=== PATIENT | male | born 1955 | race Two or more races ===

== ENCOUNTER 2018-07-23 14:37 | Inpatient (IN) | payer OTHER, MEDICAID ==
[~2018-07-23] VITALS: Ht 165.1 cm; Wt 55.8 kg
--- NOTE | 2018-07-23 14:37 | NUR ---
PT BIBSELF FROM HOME FOR RECTAL PAIN AND DIARRGEA FOR 1MO; PT AAOX4, PT ON MONITOR, VSS, PENDING ER PROV EVAL
[2018-07-23 15:21] LABS: BASOPHILS % (AUTO) 0.4 % (0.0-2.0); HEMATOCRIT 41 % (39-51); HEMOGLOBIN 14.1 g/dL (13.5-17.5); LYMPHOCYTES # (AUTO) 2.2 /CMM (0.8-4.8); LYMPHOCYTES % (AUTO) 34.1 % (20.0-44.0); MEAN CORPUSCULAR HGB CONC 34 g/dl (31.0-36.0); MEAN CORPUSCULAR VOLUME 87 fL (80-96); MONOCYTES # (AUTO) 0.5 /CMM (0.1-1.30); NEUTROPHILS # (AUTO) 3.5 /CMM (1.8-8.9); NEUTROPHILS % (AUTO) 54.5 % (43.0-81.0); PLATELET COUNT (AUTO) 234 /CMM (150-450); RED BLOOD CELL COUNT(AUTO) 4.75 MIL/uL (4.5-6.0); WHITE BLOOD COUNT (AUTO) 6.5 K/uL (4.3-11.0)
[2018-07-23 15:33] LABS: CREATININE 1.3 mg/dL (0.6-1.3); POTASSIUM 3.8 mmol/L (3.5-5.1)
[2018-07-23 15:40] LABS: ALBUMIN 3.6 g/dL (3.4-5.0); BILIRUBIN,DIRECT 0.1 mg/dL (0.0-0.2); BILIRUBIN,TOTAL 0.3 mg/dL (0.2-1.0); TOTAL PROTEIN, SERUM 8.1 g/dL (6.4-8.2)
[2018-07-23] MEDS ORDERED: IV NS 0.9% 250 ML IV ONE (15:47)
[2018-07-23] MEDS ORDERED: IOHEXOL-300 100 ML VIAL IV ONE (15:47)
[2018-07-23] MEDS ORDERED: CT SWABBABLE VALVE TRANS SET 1 EA INFUS.SET MC ONE (15:47)
--- NOTE | 2018-07-23 16:42 | NUR ---
CALLED DR PRADO FOR GEN SURGERY CONSULT PER LIZET REYES; LIZET REYES SPOKE WITH DR PRADO.
--- NOTE | 2018-07-23 16:49 | NUR ---
CALLED NURSING DIRECTOR MARKETING COMMUNICATIONS FOR BED.
--- NOTE | 2018-07-23 16:55 | NUR ---
324-2 [facility]
--- NOTE | 2018-07-23 18:30 | NUR ---
MS WOOD SHOP TEACHER NOTE PT ARRIVED TO MEDSURG UNIT IN STABLE CONDITION. PT IS A/O X4, AFEBRILE. RESPIRATIONS ARE EVEN AND UNLABORED, NOT IN ANY ACUTE DISTRESS NOTED. PT C/O DISCOMFORT TO BUTTOCKS AREA, HOWEVER DENIES ANY CHEST PAIN, N/V, SOB. PUPILS ARE REACTIVE TO LIGHT, BILATERAL HAND RESTAURANT ASSISTANT MANAGER ARE STRONG AND EQUAL. IV SITE TO RAC G18 INTACT, NO INFILTRATION NOTED. DRESSING KEPT CLEAN AND DRY. PT REFUSES SKIN ASSESSMENT AT THIS TIME, DENIES ANY DISCOLORATIONS, REDNESS, OPEN AREAS. SAFETY MEASURES ARE IN PLACE. INSTRUCTED PT TO USE CALL LIGHT WHEN ASSISTANCE IS NEEDED, CALL LIGHT IS LEFT WITHIN REACH. ENDORSED TO NEXT SHIFT FOR CONTINUITY OF CARE.
--- NOTE | 2018-07-23 19:27 | NUR ---
PT TRANSPORTED FOR [facility] VIA GURNEY; PT IS MS; REPORT GIVEN TO NURSE.
[2018-07-23 19:30] VITALS: BP 143/84
--- NOTE | 2018-07-23 19:30 | NUR ---
MS RN OPENING NOTES: RECEIVED PT ON ROOM AIR AND IS TOLERATING WELL. NO SOB NOTED. NO S/S OF DISTRESS. PT HAS IV ON R AC #18G AND IS PATENT AND INTACT. CURRENTLY H/L AT THIS TIME. INFORMED PT THAT SHE WILL BE NPO FOR NOW THERE ARE NO ADMITTING ORDERS YET. BED KEPT IN LOW, LOCKED POSITION, AND SIDE RAILS X 2UP. WILL CONTINUE TO MONITOR PT.
[2018-07-23] MEDS ORDERED: OMEG1CAP PO (19:36)
[2018-07-23] MEDS ORDERED: CHOL100045 PO (19:39)
[2018-07-23] MEDS ORDERED: MULT-1094 PO (19:40)
[2018-07-23] MEDS ORDERED: ABAC1TAB15 PO (19:40)
[2018-07-23] MEDS ORDERED: SPIR100T5 PO (19:41)
[2018-07-23 20:00] VITALS: BP 143/84
[2018-07-23] MEDS ORDERED: Z GUARD REMEDY 2 OZ OINT TP PRN (20:30)
[2018-07-23] MEDS ORDERED: MAGNESIUM HYDROXIDE 30 ML UDC PO PRN (20:30)
[2018-07-23] MEDS ORDERED: ONDANSETRON HCL/PF 4 MG/2 ML VIAL IVP PRN (20:30)
[2018-07-23] MEDS ORDERED: ACETAMINOPHEN 325 MG TABLET PO PRN (20:30)
[2018-07-23] MEDS ORDERED: ZOLPIDEM TARTRATE 5 MG TABLET PO PRN (20:30)
[2018-07-23] MEDS ORDERED: MAG HYDROX/AL HYDROX/SIMETH 30 ML UDC PO PRN (20:30)
--- NOTE | 2018-07-23 21:25 | NUR ---
MS RN NOTES: TERRITORY ACCOUNT MANAGER ADALGISA AT BEDSIDE.
--- NOTE | 2018-07-23 21:38 | NUR ---
MS ALMANZA NOTES: PER MARA ROMERO TO TAKE HIV MED TONIGHT WE DO NOT PROVIDE IT AND COLLECT IT AND SEND TO PHARMACY FOR TOMORROW. Addendum: 07/23/18 at 2155 by CLARITZA HUERTA RN MED: [id number] [phone]
[2018-07-23] MEDS: IV NS 0.9% 1,000 ML IV PRN (21:49)
--- NOTE | 2018-07-23 21:55 | NUR ---
MS RN NOTES: MEDS COLLECTED AND PLACED IN BAG. WILL TAKE TO PHARMACY IN AM.
[2018-07-23] MEDS ORDERED: CALC-1237 PO (21:58)
[2018-07-23] MEDS: HYDROCODONE/APAP 5/325MG 1 EACH TABLET PO PRN (22:05)
--- NOTE | 2018-07-23 22:07 | NUR ---
MS RN NOTES: PT VERBALIZING THAT HE IS STARTING TO HAVE PAIN IN HIS RECTUM 12/01. PT WAS ADMINISTERED NORCO 5 PO. WILL CONTINUE TO MONITOR.
[2018-07-23] MEDS ORDERED: HYDROMORPHONE INJ 0.5 MG/0.5 ML SYRINGE IV PRN (22:30)
[2018-07-24 06:42] LABS: APPEARANCE,URINE CLEAR (CLEAR); BILIRUBIN,URINE NEGATIVE (NEGATIVE); BLOOD, URINE NEGATIVE Ery/uL (NEGATIVE); COLOR,URINE YELLOW (YELLOW); KETONES,URINE NEGATIVE (NEGATIVE); LEUKOCYTE ESTERASE ,URINE NEGATIVE (NEGATIVE); NITRITE, URINE NEGATIVE (NEGATIVE); PH,URINE 5.5 (5.0-8.0); PROTEIN,URINE NEGATIVE (NEGATIVE); UGLUCOSE NEGATIVE (NEGATIVE); UROBILINOGEN,URINE 0.2 EU/dL (0.2)
[2018-07-24 06:54] LABS: BASOPHILS % (AUTO) 0.6 % (0.0-2.0); EOSINOPHILS % (AUTO) 4.1 % (0.0-6.0); HEMATOCRIT 37 % (39-51); HEMOGLOBIN 12.6 g/dL (13.5-17.5); LYMPHOCYTES # (AUTO) 2.7 /CMM (0.8-4.8); LYMPHOCYTES % (AUTO) 42.2 % (20.0-44.0); MEAN CORPUSCULAR HGB CONC 34 g/dl (31.0-36.0); MEAN CORPUSCULAR VOLUME 86 fL (80-96); MONOCYTES # (AUTO) 0.5 /CMM (0.1-1.30); MONOCYTES % (AUTO) 8.3 % (2.0-12.0); NEUTROPHILS # (AUTO) 2.8 /CMM (1.8-8.9); NEUTROPHILS % (AUTO) 44.8 % (43.0-81.0); PLATELET COUNT (AUTO) 202 /CMM (150-450); RED BLOOD CELL COUNT(AUTO) 4.29 MIL/uL (4.5-6.0); WHITE BLOOD COUNT (AUTO) 6.3 K/uL (4.3-11.0)
--- NOTE | 2018-07-24 06:57 | NUR ---
MS ALMANZA CLOSING NOTES: ALL NEEDS WERE ATTENDED AND ANTICIPATED FOR. PT KEPT CLEAN, DRY, AND COMFORTABLE. PT ON ROOM AIR AND TOLERATING WELL. PT HAS BEEN NPO SINCE MIDNIGHT. PT HAS IV AND IS BEING INFUSED WITH IV NS AT 75ML/HR. BED KEPT IN LOW, LOCKED POSITION, AND SIDE RAILS X 2UP. NO SOB NOTED. NO S/S OF DISTRESS. WILL ENDORSE TO AM NURSE FOR DEJON. Addendum: 07/24/18 at 0735 by CLARITZA HUERTA RN WILL BRING MEDS TO PHARMACY.
--- NOTE | 2018-07-24 07:12 | NUR ---
MS RN NOTES PATIENT IN BED ALERT ORIENTED X 3. NO ACUTE DISTRESS NOTED. BREATHING UNLABORED. NO SOB NOTED. DENIED ANY PAIN. IV ACCESS PATENT AND INTACT, NO REDNESS OR SWELLING NOTED. SAFETY MEASURES IN PLACE. CALL LIGHT WITHIN REACH. WILL CONTINUE TO MONITOR ACCORDINGLY.
[2018-07-24 07:21] LABS: ALBUMIN 3.1 g/dL (3.4-5.0); BILIRUBIN,TOTAL 0.4 mg/dL (0.2-1.0); CALCIUM, SERUM 8.5 mg/dL (8.5-10.1); CREATININE 1.3 mg/dL (0.6-1.3); MAGNESIUM 1.7 mg/dL (1.8-2.4); PHOSPHORUS 3.4 mg/dL (2.5-4.9); POTASSIUM 3.4 mmol/L (3.5-5.1)
[2018-07-24 07:27] LABS: THYROID STIMULATING HORMONE 2.635 uIU/mL (0.358-3.74)
[2018-07-24 08:00] VITALS: BP 121/73
[2018-07-24] MEDS: PANTOPRAZOLE 40 MG VIAL IV SCH (09:10)
--- NOTE | 2018-07-24 09:58 | NUR ---
MS RN NOTES SEEN AND EVALUATED BY HARINI BLACK WITH NEW ORDERS MADE, NOTED AND CARRIED OUT.
[2018-07-24] MEDS: Magnesium 1GM/D5W 100ML PREMIX 100 ML IV SCH ×2 (10:47→15:06)
[2018-07-24] MEDS: SPIRONOLACTONE 25 MG TABLET PO SCH (10:53)
--- NOTE | 2018-07-24 10:53 | NUR ---
MS RN NOTES PATIENT WAS NPO EARLIER, ADMINISTERED ALDACTONE, HUMAN RESOURCE OFFICER HARINI DIANA AWARE.
[2018-07-24] MEDS: POTASSIUM CL. PREMIX PERIPHER. 50 ML IV SCH ×2 (12:19→13:44)
[2018-07-24] MEDS: IV NS 0.9% 1,000 ML IV PRN (12:20)
[2018-07-24] MEDS ORDERED: NA PHOS,M-B/NA PHOS,DI-BA 1 EA ENEMA RC PRN (14:00)
--- NOTE | 2018-07-24 15:42 | NUR ---
MS RN NOTES PATIENT REFUSED ENEMA GIVEN DESPITE OF EXPLANATION OR RISK AND BENEFITS, LIZET RICK MADE AWARE. LIZET ELIZABETH MADE NEW ORDERS TO DISCONTINUE ORDERS FOR MAGNESIUM CITRATE AND GOLYTELY DUE TO CANCEL EGD/COLONSCOPY ORDER, NOTED AND CARRIED OUT.
[2018-07-24 16:00] VITALS: BP 129/82
[2018-07-24] MEDS: DOLUTEGRAVIR PO SCH (16:58)
[2018-07-24] MEDS: ABACAVIR PO SCH (16:58)
[2018-07-24] MEDS: LAMIVUDI PO SCH (16:58)
--- NOTE | 2018-07-24 19:00 | NUR ---
MS RN NOTES PATIENT IN BED ALERT ORIENTED X 3. NO ACUTE DISTRESS NOTED. BREATHING UNLABORED. NO SOB NOTED. DENIED ANY PAIN. IV ACCESS PATENT AND INTACT, NO REDNESS OR SWELLING NOTED. DUE MEDICATIONS GIVEN, NO ASE NOTED. NEEDS ATTENDED AND ANTICIPATED.SAFETY MEASURES IN PLACE. CALL LIGHT WITHIN REACH. ENDORSED TO NIGHT NURSE FOR CONTINUITY OF CARE.
--- NOTE | 2018-07-24 19:10 | NUR ---
MS RN NOTES RECEIVED PT IN BED ALERT ORIENTED X 3 AND ABLE TO MAKE NEEDS KNOWN. NO S/S OF ACUTE DISTRESS OR SOB NOTED. BREATHING EVEN AND UNLABORED. PT DENIES ANY PAIN AT THIS TIME. IV ACCESS LAC #20G IS PATENT AND INTACT WITH NO REDNESS OR SWELLING NOTED. SAFETY MEASURES IN PLACE. CALL LIGHT WITHIN REACH. WILL CONTINUE TO MONITOR.
[2018-07-24 20:00] VITALS: BP 124/71
[2018-07-24] MEDS: HYDROCODONE/APAP 5/325MG 1 EACH TABLET PO PRN (21:19)
--- NOTE | 2018-07-25 07:10 | NUR ---
MS RN NOTES PATIENT IN BED ALERT ORIENTED X 3. NO ACUTE DISTRESS NOTED. BREATHING UNLABORED. NO SOB NOTED. IV ACCESS PATENT AND INTACT, NO REDNESS OR SWELLING NOTED. SAFETY MEASURES IN PLACE. CALL LIGHT WITHIN REACH. WILL CONTINUE TO MONITOR ACCORDINGLY.
--- NOTE | 2018-07-25 07:14 | NUR ---
MS RN NOTES PT IN BED ALERT ORIENTED X 3 AND ABLE TO MAKE NEEDS KNOWN. NO S/S OF ACUTE DISTRESS OR SOB NOTED. BREATHING EVEN AND UNLABORED. PT DENIES ANY PAIN AT THIS TIME. IV ACCESS LAC #20G IS PATENT AND INTACT WITH NO REDNESS OR SWELLING NOTED WITH NS @75ML/HR. CALL LIGHT WITHIN REACH. WILL ENDORSE TO ONCOMING NURSE FOR CONTINUATION OF CARE.
[2018-07-25 07:19] LABS: BASOPHILS % (AUTO) 0.3 % (0.0-2.0); EOSINOPHILS % (AUTO) 3.3 % (0.0-6.0); HEMATOCRIT 37 % (39-51); HEMOGLOBIN 12.3 g/dL (13.5-17.5); LYMPHOCYTES # (AUTO) 1.8 /CMM (0.8-4.8); LYMPHOCYTES % (AUTO) 31.2 % (20.0-44.0); MEAN CORPUSCULAR HGB CONC 34 g/dl (31.0-36.0); MEAN CORPUSCULAR VOLUME 87 fL (80-96); MONOCYTES # (AUTO) 0.4 /CMM (0.1-1.30); MONOCYTES % (AUTO) 6.7 % (2.0-12.0); NEUTROPHILS # (AUTO) 3.3 /CMM (1.8-8.9); NEUTROPHILS % (AUTO) 58.5 % (43.0-81.0); PLATELET COUNT (AUTO) 191 /CMM (150-450); RED BLOOD CELL COUNT(AUTO) 4.22 MIL/uL (4.5-6.0); WHITE BLOOD COUNT (AUTO) 5.7 K/uL (4.3-11.0)
[2018-07-25 07:36] LABS: CALCIUM, SERUM 8.4 mg/dL (8.5-10.1); CREATININE 1.3 mg/dL (0.6-1.3); MAGNESIUM 1.9 mg/dL (1.8-2.4); POTASSIUM 3.5 mmol/L (3.5-5.1)
[2018-07-25] MEDS ORDERED: ANESTHESIA TRAY IN PYXIS 1 EA TRAY MC ONE (07:53)
[2018-07-25] MEDS ORDERED: LIDOCAINE HCL/PF 1% 30 ML SDV ONE (07:53)
[2018-07-25 08:00] VITALS: BP 130/83
[2018-07-25] MEDS ORDERED: PEG 3350/NA SULF,BICARB,CL/KCL 4,000 ML BOTTLE PO ONE (08:00)
[2018-07-25] MEDS ORDERED: MAGNESIUM CITRATE 296 ML BOTTLE PO ONE (08:00)
[2018-07-25 08:06] LABS: *BASOS 0 % (Not Estab.); *EOS 3 % (Not Estab.); *EOS, ABSOLUTE 0.2 x10E3/uL (0.0-0.4); *HGB 12.9 g/dL (13.0-17.7); *IMMATURE GRANULOCYTES 0 % (Not Estab.); *LYMPHOCYTES 40 % (Not Estab.); *LYMPHS, ABSOLUTE 2.7 x10E3/uL (0.7-3.1); *MCH 28.9 pg (26.6-33.0); *MCHC 34.9 g/dL (31.5-35.7); *MCV 83 fL (79-97); *MONOCYTES 8 % (Not Estab.); *MONOS, ABSOLUTE 0.5 x10E3/uL (0.1-0.9); *NEUTROPHILS 49 % (Not Estab.); *NEUTROPHILS, ABSOLUTE 3.3 x10E3/uL (1.4-7.0); *PLT 233 x10E3/uL (150-379); *RBC 4.47 x10E6/uL (4.14-5.80); *RDW 15.7 % (12.3-15.4)
[2018-07-25 08:16] LABS: THYROID STIMULATING HORMONE 1.595 uIU/mL (0.358-3.74)
[2018-07-25] MEDS ORDERED: FENTANYL PF 100MCG/2ML AMPUL ONE ×2 (08:17→09:26)
[2018-07-25] MEDS ORDERED: MIDAZOLAM HCL 2 MG/2ML VIAL ONE (08:17)
[2018-07-25] MEDS ORDERED: BUPIVACAINE MPF 0.5% W/EPI INJ 30 ML VIAL ONE (08:54)
[2018-07-25] MEDS ORDERED: METRONIDAZOLE 500MG/ NS 100ML 100 ML IV ONE (08:55)
[2018-07-25] MEDS: PANTOPRAZOLE 40 MG VIAL IV SCH (09:00)
[2018-07-25] MEDS: SPIRONOLACTONE 25 MG TABLET PO SCH (09:00)
[2018-07-25] MEDS ORDERED: HYDROMORPHONE INJ 2 MG/ML DISP.SYRIN ONE (09:16)
--- NOTE | 2018-07-25 10:38 | NUR ---
MS RN NOTES PATIENT CAME BACK FROM RECOVERY ROOM IN STABLE CONDITION. NO ACUTE DISTRESS NOTED, BREATHING UNLABORED. PATIENT EYES CLOSED, RESPONSIVE TO VERBAL AND TACTILE STIMULI.SAFETY MEASURES IN PLACE, CALL LIGHT WITHIN IN REACH. WILL CONTINUE TO MONITOR ACCORDINGLY.
[2018-07-25] MEDS: IV NS 0.9% 1,000 ML IV PRN (10:54)
[2018-07-25] MEDS: ABACAVIR PO SCH (11:23)
[2018-07-25] MEDS: DOLUTEGRAVIR PO SCH (11:23)
[2018-07-25] MEDS: LAMIVUDI PO SCH (11:23)
--- NOTE | 2018-07-25 11:23 | NUR ---
MS RN NOTES PATIENT ALERT ORIENTED X 3. NO ACUTE DISTRESS NOTED. BREATHING UNLABORED. WITH STABLE VITAL SIGNS. DENIED ANY PAIN AT THIS TIME. WILL CONTINUE TO MONITOR ACCORDINGLY.
[2018-07-25] MEDS: ACETYLCYSTEINE 10% 3,000 MG/30 ML VIAL PO SCH ×2 (12:30→16:25)
[2018-07-25] MEDS ORDERED: CT SWABBABLE VALVE TRANS SET 1 EA INFUS.SET MC ONE (12:47)
[2018-07-25] MEDS ORDERED: IV NS 0.9% 250 ML IV ONE (12:47)
[2018-07-25] MEDS ORDERED: IOHEXOL-300 100 ML VIAL IV ONE (12:47)
[2018-07-25 16:00] VITALS: BP 122/76
[2018-07-25] MEDS: ANCEF 1 GM/50 ML D5W IV SCH ×2 (17:01)
[2018-07-25] MEDS: METRONIDAZOLE 500MG/ NS 100ML 500 MG in PREMIX 1 EA IV SCH (17:51)
[2018-07-25] MEDS: BISACODYL (5 MG) 5 MG TABLET.DR PO SCH (17:59)
--- NOTE | 2018-07-25 18:18 | NUR ---
MS RN NOTES CLARIFIED DIET ORDERS HAND WORKER HARINI DIANA WITH ORDERS MAY RESUME CLEAR LIQUIDS DIET FOR NOW, NOTED AND CARRIED OUT.
--- NOTE | 2018-07-25 19:00 | NUR ---
MS RN NOTES PATIENT IN BED ALERT ORIENTED X 3. NO ACUTE DISTRESS NOTED. BREATHING UNLABORED. NO SOB NOTED. IV ACCESS PATENT AND INTACT, NO REDNESS OR SWELLING NOTED. DUE MEDICATIONS GIVEN, NO ASE NOTED, NEEDS ATTENDED AND ANTICIPATED. KEPT CLEAN DRY AND COMFORTABLE. SAFETY MEASURES IN PLACE. CALL LIGHT WITHIN REACH. ENDORSED TO NIGHT NURSE FOR CONTINUITY OF CARE. ENDORSED TO NIGHT NURSE FOR CONTINUITY OF CARE
--- NOTE | 2018-07-25 19:10 | NUR ---
MS RN NOTES RECEIVED PT IN BED ALERT ORIENTED X 3 AND ABLE TO MAKE NEEDS KNOWN. NO S/S OF ACUTE DISTRESS OR SOB NOTED. BREATHING UNLABORED. IV ACCESS PATENT AND INTACT WITH NO REDNESS OR SWELLING NOTED. SAFETY MEASURES IN PLACE. CALL LIGHT WITHIN REACH. WILL CONTINUE TO MONITOR.
[2018-07-25 20:00] VITALS: BP 114/68
[2018-07-26] MEDS: ANCEF 1 GM/50 ML D5W IV SCH ×4 (00:32→08:51)
[2018-07-26 00:55] VITALS: BP 114/68
[2018-07-26] MEDS: METRONIDAZOLE 500MG/ NS 100ML 500 MG in PREMIX 1 EA IV SCH ×2 (01:16→10:44)
[2018-07-26 06:41] LABS: CALCIUM, SERUM 8.3 mg/dL (8.5-10.1); CREATININE 1.3 mg/dL (0.6-1.3); POTASSIUM 3.4 mmol/L (3.5-5.1)
[2018-07-26 06:44] LABS: BASOPHILS % (AUTO) 0.1 % (0.0-2.0); EOSINOPHILS % (AUTO) 0.2 % (0.0-6.0); HEMATOCRIT 33 % (39-51); HEMOGLOBIN 11.3 g/dL (13.5-17.5); LYMPHOCYTES # (AUTO) 1.6 /CMM (0.8-4.8); MEAN CORPUSCULAR HGB CONC 34 g/dl (31.0-36.0); MEAN CORPUSCULAR VOLUME 87 fL (80-96); MONOCYTES # (AUTO) 0.3 /CMM (0.1-1.30); MONOCYTES % (AUTO) 3.2 % (2.0-12.0); NEUTROPHILS % (AUTO) 81.5 % (43.0-81.0); PLATELET COUNT (AUTO) 185 /CMM (150-450); RED BLOOD CELL COUNT(AUTO) 3.81 MIL/uL (4.5-6.0)
--- NOTE | 2018-07-26 06:47 | NUR ---
MS RN NOTES PT IN BED SLEEPING BUT EASILY AWOKEN VERBALLY OR BY TOUCH. PT A/O X 3 AND ABLE TO MAKE NEEDS KNOWN. NO S/S OF ACUTE DISTRESS OR SOB NOTED. BREATHING UNLABORED. SITZ BATH GIVEN AND TOLERATED WELL. IV ACCESS PATENT AND INTACT WITH NO REDNESS OR SWELLING NOTED RUNNING NS@75ML/HR. SAFETY MEASURES IN PLACE. CALL LIGHT WITHIN REACH. WILL ENDORSE TO ONCOMING NURSE FOR CONTINUATION OF CARE.
--- NOTE | 2018-07-26 07:20 | NUR ---
RN OPENING NOTES RECEIVED PATIENT IN BED ALERT ORIENTED X 3 AND ABLE TO MAKE NEEDS KNOWN. NOT IN ANY FORM OF DISTRESS, NO SOB NOTED. DENIED PAIN OR DISCOMFORT AT THIS TIME. IV ACCESS PATENT AND INTACT WITH NO REDNESS OR SWELLING. SAFETY MEASURES IN PLACE. BED IN LOW/LOCKED POSITION, SIDERAILS UPX2, CALL LIGHT WITHIN REACH. WILL CONTINUE TO MONITOR ACCORDINGLY
[2018-07-26 08:29] VITALS: BP 111/71
[2018-07-26] MEDS: PANTOPRAZOLE 40 MG VIAL IV SCH (08:51)
[2018-07-26] MEDS: ABACAVIR PO SCH ×2 (08:56→12:06)
[2018-07-26] MEDS: BISACODYL (5 MG) 5 MG TABLET.DR PO SCH ×2 (08:56→18:37)
[2018-07-26] MEDS: LAMIVUDI PO SCH ×2 (08:56→12:06)
[2018-07-26] MEDS: SPIRONOLACTONE 25 MG TABLET PO SCH (08:56)
[2018-07-26] MEDS: DOLUTEGRAVIR PO SCH ×2 (08:56→12:06)
[2018-07-26] MEDS: ACETYLCYSTEINE 10% 3,000 MG/30 ML VIAL PO SCH ×2 (08:57→18:37)
[2018-07-26 10:16] LABS: *% CD 4 POS. LYMPH 14.7 % (30.8-58.5); *% CD 8 POS. LYMPH 37.7 % (12.0-35.5); *ABSOLUTE CD 4 HELPER 397 /uL (359-1519); *ABSOLUTE CD 8 SUPPRESSOR 1018 /uL (109-897); *CD4/CD8 RATIO 0.39 (0.92-3.72)
[2018-07-26] MEDS ORDERED: POTASSIUM CL. PREMIX PERIPHER. 50 ML IV SCH (10:30)
[2018-07-26] MEDS: MORPHINE SULFATE INJ 2 MG/ML DISP.SYRIN IV PRN ×2 (10:49→21:38)
[2018-07-26] MEDS ORDERED: POTASSIUM CHLORIDE 20 MEQ POWDER PACKET PO ONE (13:30)
[2018-07-26] MEDS: IV NS 0.9% 1,000 ML IV PRN (13:49)
[2018-07-26 16:48] VITALS: BP 103/51
--- NOTE | 2018-07-26 19:20 | NUR ---
RN CLOSING NOTES PATIENT IN STABLE CONDITION. ALL NEEDS ATTENDED AND PROVIDED. ALL DUE MEDICATIONS ADMINISTERED ORDERED. ASSISTED WITH ADLS. KEPT PATIENT SAFE AND COMFORTABLE. BED IN LOW/LOCKED POSITION, SIDERAILS UPX2, CALL LIGHT IN REACH. ENDORSED TO NIGHT RN FOR DEJON.
--- NOTE | 2018-07-26 19:30 | NUR ---
MS/RN RECEIVE PATIENT AWAKE, ALERT, ORIENTED, COMFORTABLE, NO C/O PAIN, NO DISTRESS NOTED, CALL LIGHT IN REACH. WILL MONITOR.
[2018-07-26 20:00] VITALS: BP 95/51
--- NOTE | 2018-07-27 06:43 | NUR ---
MS/RN PATIENT IS AWAKE, ALERT, ORIENTED, NO C/O PAIN, NO CHANGE IN CONDITION, ALL NEEDS ATTENDED AT THIS TIME, WILL CONTINUE TO MONITOR.
[2018-07-27 07:06] LABS: BASOPHILS % (AUTO) 0.1 % (0.0-2.0); EOSINOPHILS % (AUTO) 1.5 % (0.0-6.0); HEMATOCRIT 32 % (39-51); HEMOGLOBIN 10.9 g/dL (13.5-17.5); LYMPHOCYTES # (AUTO) 1.6 /CMM (0.8-4.8); MEAN CORPUSCULAR HGB CONC 34 g/dl (31.0-36.0); MEAN CORPUSCULAR VOLUME 87 fL (80-96); MONOCYTES # (AUTO) 0.3 /CMM (0.1-1.30); MONOCYTES % (AUTO) 3.6 % (2.0-12.0); NEUTROPHILS # (AUTO) 7.6 /CMM (1.8-8.9); NEUTROPHILS % (AUTO) 77.8 % (43.0-81.0); PLATELET COUNT (AUTO) 163 /CMM (150-450); RED BLOOD CELL COUNT(AUTO) 3.66 MIL/uL (4.5-6.0); WHITE BLOOD COUNT (AUTO) 9.7 K/uL (4.3-11.0)
--- NOTE | 2018-07-27 07:08 | NUR ---
RN NOTES PATIENT A/OX4, NO DISTRESS NOTED, DENIES PAIN AT THIS TIME. OFFERED SITZ BATH, AND PATIENT STATED SHE'S WILLING TO TRY LATER. KEPT PATIENT COMFORTABLE, NEEDS ATTENDED, CALL LIGHT WITHIN REACH, WILL CONTINUE TO MONITOR.
[2018-07-27 07:21] LABS: CALCIUM, SERUM 8.2 mg/dL (8.5-10.1); CREATININE 1.2 mg/dL (0.6-1.3); MAGNESIUM 1.6 mg/dL (1.8-2.4); PHOSPHORUS 2.3 mg/dL (2.5-4.9); POTASSIUM 3.5 mmol/L (3.5-5.1)
[2018-07-27 08:00] VITALS: BP 107/65
[2018-07-27 08:09] LABS: AFP, TUMOR MARKER 2.6 ng/mL (0.0-8.3)
[2018-07-27] MEDS: SPIRONOLACTONE 25 MG TABLET PO SCH (08:56)
[2018-07-27] MEDS: PANTOPRAZOLE 40 MG VIAL IV SCH (08:56)
[2018-07-27] MEDS: BISACODYL (5 MG) 5 MG TABLET.DR PO SCH ×2 (08:56→16:14)
[2018-07-27] MEDS: LAMIVUDI PO SCH (08:57)
[2018-07-27] MEDS: ABACAVIR PO SCH (08:57)
[2018-07-27] MEDS: DOLUTEGRAVIR PO SCH (08:57)
[2018-07-27] MEDS: ACETYLCYSTEINE 10% 3,000 MG/30 ML VIAL PO SCH (08:58)
[2018-07-27] MEDS: Magnesium 1GM/D5W 100ML PREMIX 100 ML IV SCH ×2 (10:08→11:15)
[2018-07-27] MEDS ORDERED: NEUTRA PHOS 1 POWD.PACKET PO ONE (10:30)
[2018-07-27 16:00] VITALS: BP 102/63
[2018-07-27] MEDS: MORPHINE SULFATE INJ 2 MG/ML DISP.SYRIN IV PRN (16:21)
--- NOTE | 2018-07-27 18:20 | NUR ---
RN NOTES PATIENT A/OX4, ASSISTED WITH ADLS, PATIENT ABLE TO PROVIDE SELF CARE. PATIENT SEEN BY GLENN LARRY ALL TERRAIN VEHICLE RACER, AND GAVE ORDERS TO START [facility] TOMORROW MORNING FOR COLONOSCOPY PREP. PATIENT AGREED. PATIENT HAS REFUSED SITZ BATH. Z-GUARD APPLIED FOR REDNESS ON SACRAL AREA. ENCOURAGED AND ASSISTED PATIENT TO TURN AND REPOSITION EVERY 2 HOURS TO PREVENT SKIN BREAKDOWN. PATIENT VERBALIZED UNDERSTANDING. NEEDS ATTENDED AND MET, CALL LIGHT WITHIN REACH, WILL ENDORSE TO PERIODONTIST FOR DEJON.
--- NOTE | 2018-07-27 19:46 | NUR ---
MS/RN RECEIVE PATIENT AWAKE, ALERT, ORIENTED, COMFORTABLE, NO C/O PAIN, NO DISTRESS NOTED, CALL LIGHT IN REACH. WILL MONITOR.
[2018-07-27 20:00] VITALS: BP 94/63
[2018-07-28] MEDS: MORPHINE SULFATE INJ 2 MG/ML DISP.SYRIN IV PRN ×3 (00:35→23:57)
[2018-07-28] MEDS: IV NS 0.9% 1,000 ML IV PRN ×2 (06:21→21:11)
--- NOTE | 2018-07-28 06:28 | NUR ---
MS/RN PATIENT IS AWAKE, ALERT, COMFORTABLE, NO C/O PAIN, NO DISTRESS NOTED, ALL NEEDS ATTENDED AT THIS TIME, WILL CONTINUE TO MONITOR.
[2018-07-28 06:37] LABS: BASOPHILS % (AUTO) 0.3 % (0.0-2.0); HEMATOCRIT 32 % (39-51); HEMOGLOBIN 10.9 g/dL (13.5-17.5); LYMPHOCYTES # (AUTO) 1.7 /CMM (0.8-4.8); MEAN CORPUSCULAR HGB CONC 34 g/dl (31.0-36.0); MEAN CORPUSCULAR VOLUME 87 fL (80-96); MONOCYTES # (AUTO) 0.4 /CMM (0.1-1.30); MONOCYTES % (AUTO) 5.5 % (2.0-12.0); NEUTROPHILS # (AUTO) 5.2 /CMM (1.8-8.9); NEUTROPHILS % (AUTO) 68.2 % (43.0-81.0); PLATELET COUNT (AUTO) 174 /CMM (150-450); RED BLOOD CELL COUNT(AUTO) 3.65 MIL/uL (4.5-6.0); WHITE BLOOD COUNT (AUTO) 7.6 K/uL (4.3-11.0)
[2018-07-28 06:44] LABS: CALCIUM, SERUM 8.2 mg/dL (8.5-10.1); CREATININE 1.1 mg/dL (0.6-1.3); MAGNESIUM 1.9 mg/dL (1.8-2.4); POTASSIUM 3.6 mmol/L (3.5-5.1)
--- NOTE | 2018-07-28 07:29 | NUR ---
RN OPENING NOTES RECEIVED PATIENT IN BED ALERT ORIENTED X 3,ABLE TO MAKE NEEDS KNOWN. NOT IN ANY FORM OF DISTRESS, NO SOB NOTED. DENIED PAIN OR DISCOMFORT AT THIS TIME. IV ACCESS PATENT AND INTACT WITH NO REDNESS OR SWELLING. SAFETY MEASURES IN PLACE. BED IN LOW/LOCKED POSITION, SIDERAILS UPX2, CALL LIGHT WITHIN REACH. WILL CONTINUE TO MONITOR ACCORDINGLY
[2018-07-28 08:00] VITALS: BP 127/81
[2018-07-28] MEDS ORDERED: MAGNESIUM CITRATE 296 ML BOTTLE PO ONE (08:00)
[2018-07-28] MEDS ORDERED: PEG 3350/NA SULF,BICARB,CL/KCL 4,000 ML BOTTLE PO ONE (08:00)
[2018-07-28 08:10] LABS: AFP, TUMOR MARKER 3.4 ng/mL (0.0-8.3)
[2018-07-28] MEDS: BISACODYL (5 MG) 5 MG TABLET.DR PO SCH ×2 (08:20→17:52)
[2018-07-28] MEDS: SPIRONOLACTONE 25 MG TABLET PO SCH (08:20)
[2018-07-28] MEDS: PANTOPRAZOLE 40 MG VIAL IV SCH (08:20)
[2018-07-28] MEDS: DOLUTEGRAVIR PO SCH (08:21)
[2018-07-28] MEDS: ABACAVIR PO SCH (08:21)
[2018-07-28] MEDS: LAMIVUDI PO SCH (08:21)
--- NOTE | 2018-07-28 08:44 | NUR ---
WOUND CARE CONSULT: PT SEEN FOR SACRAL REDNESS PER NURSING STAFF BUT NO REDNESS NOTED. PT USING Z GUARD FOR PERIANAL PROTECTION. PT ABLE TO TURN AND REPOSITION IN BED. WILL SEE PRN.
[2018-07-28 16:00] VITALS: BP 121/70
[2018-07-28] MEDS: ENSURE CLEAR 237 ML LIQUID (MIX BERRY) PO SCH (17:30)
--- NOTE | 2018-07-28 17:56 | NUR ---
rn notes dulcolax pulled out twice. first med was wasted due to damage package, wasted.
--- NOTE | 2018-07-28 17:58 | NUR ---
ensure held due to patient is on clear liquids
--- NOTE | 2018-07-28 17:59 | NUR ---
patient for NPO aftermidnight, egd/colonoscopy tomorrow. consent signed
--- NOTE | 2018-07-28 19:20 | NUR ---
rn closing notes patient in stable condition. all needs attended and provided. all due medications given as ordered. kept patient safe ans comfortable. bed in low/lópez position, siderails upx2, semifowlers, call light in freach. endorsed to night rn for angelo.
--- NOTE | 2018-07-28 19:23 | NUR ---
MS RN PT AWAKE WATCHING TV, RESPIRATIONS EVEN AND UNLABORED, NO SOB NOTED, NO DISTRESS, SAFETY MEASURES IN PLACE. WILL CONTINUE TO MONITOR.
[2018-07-28 20:00] VITALS: BP 147/98
--- NOTE | 2018-07-29 06:23 | NUR ---
RN CLOSING NOTE ASLEEP AND EASILY AWAKEN. MAINTAINS NPO MIDNIGHT. FOR COLONOSCOPY AND EGD TODAY. PT NOW DEFECATING LIQUID LIGHT BROWN STOOL. CONSUMED GOLYTLY. NOT IN DISTRESS, NO COMPLAIN OF PAIN. NEEDS ATTENDED AND ANTICIPATED, KEPT CLEAN AND DRY AND COMFORT. SAFETY MEASURES IN PLACE, BED IN LOW LOCKED POSITION, CALL LIGHT WITHIN EASY REACH. ENDORSE TO NEXT SHIFT CONTINUITY OF CARE.
--- NOTE | 2018-07-29 07:31 | NUR ---
MS RN OPENING NOTES PATIENT IS A/OX4. RECEIVED PATIENT IN STABLE CONDITION. IN NO APPARENT DISTRESS. BEDSIDE RAILS ARE UPX2. BED IS LOCKED AND LOWERED. CALL LIGHT IS WITHIN REACH. IV LINE IS INTACT AND PATENT. WILL CONTINUE TO MONITOR PATIENT.
[2018-07-29 07:55] LABS: BASOPHILS % (AUTO) 0.4 % (0.0-2.0); EOSINOPHILS % (AUTO) 5.3 % (0.0-6.0); HEMATOCRIT 33 % (39-51); HEMOGLOBIN 11.4 g/dL (13.5-17.5); LYMPHOCYTES # (AUTO) 1.6 /CMM (0.8-4.8); LYMPHOCYTES % (AUTO) 32.4 % (20.0-44.0); MEAN CORPUSCULAR HGB CONC 34 g/dl (31.0-36.0); MEAN CORPUSCULAR VOLUME 87 fL (80-96); MONOCYTES # (AUTO) 0.4 /CMM (0.1-1.30); MONOCYTES % (AUTO) 7.2 % (2.0-12.0); NEUTROPHILS # (AUTO) 2.8 /CMM (1.8-8.9); NEUTROPHILS % (AUTO) 54.7 % (43.0-81.0); PLATELET COUNT (AUTO) 220 /CMM (150-450); RED BLOOD CELL COUNT(AUTO) 3.82 MIL/uL (4.5-6.0)
[2018-07-29 08:00] VITALS: BP 128/73
[2018-07-29 08:14] LABS: CALCIUM, SERUM 8.7 mg/dL (8.5-10.1); CREATININE 1.1 mg/dL (0.6-1.3); MAGNESIUM 1.8 mg/dL (1.8-2.4); PHOSPHORUS 3.4 mg/dL (2.5-4.9); POTASSIUM 3.4 mmol/L (3.5-5.1)
[2018-07-29] MEDS: PANTOPRAZOLE 40 MG VIAL IV SCH (08:15)
[2018-07-29] MEDS: SPIRONOLACTONE 25 MG TABLET PO SCH (08:25)
[2018-07-29] MEDS: BISACODYL (5 MG) 5 MG TABLET.DR PO SCH ×2 (08:26→16:10)
[2018-07-29] MEDS: DOLUTEGRAVIR PO SCH (08:26)
[2018-07-29] MEDS: ABACAVIR PO SCH (08:26)
[2018-07-29] MEDS: LAMIVUDI PO SCH (08:26)
[2018-07-29] MEDS: ENSURE CLEAR 237 ML LIQUID (MIX BERRY) PO SCH ×3 (08:26→16:10)
--- NOTE | 2018-07-29 10:30 | NUR ---
PATIENT TAKEN TO OPERATING ROOM FOR EGD/ COLONOSCOPY.
--- NOTE | 2018-07-29 12:12 | NUR ---
PATIENT RETURNED TO THE UNIT FROM EGD/ COLONOSCOPY PROCEDURE. PATIENT IS IN STABLE CONDITION. VITAL SIGNS ARE WITHIN NORMAL LIMITS. ORDERS CARRIED OUT. WILL CONTINUE TO MONITOR PATIENT.
[2018-07-29] MEDS: POTASSIUM CL. PREMIX PERIPHER. 50 ML IV SCH ×3 (12:25→14:44)
[2018-07-29 14:36] LABS: APPEARANCE,URINE CLEAR (CLEAR); BILIRUBIN,URINE NEGATIVE (NEGATIVE); BLOOD, URINE NEGATIVE Ery/uL (NEGATIVE); KETONES,URINE NEGATIVE (NEGATIVE); LEUKOCYTE ESTERASE ,URINE NEGATIVE (NEGATIVE); NITRITE, URINE NEGATIVE (NEGATIVE); PH,URINE 5.5 (5.0-8.0); PROTEIN,URINE NEGATIVE (NEGATIVE); UGLUCOSE NEGATIVE (NEGATIVE); UROBILINOGEN,URINE 0.2 EU/dL (0.2)
[2018-07-29 14:39] LABS: COLOR,URINE Light yellow (YELLOW)
--- NOTE | 2018-07-29 14:47 | NUR ---
POTASSIUM ADMINISTERED LATE DUE TO PATIENT IN THE OPERATION ROOM FROM 10:30 TO 12:12.
[2018-07-29 16:00] VITALS: BP 129/68
--- NOTE | 2018-07-29 18:30 | NUR ---
MS RN CLOSING NOTES PATIENT IS IN STABLE CONDITION. IN NO APPARENT DISTRESS. BEDSIDE RAILS ARE UPX2. BED IS LOCKED AND LOWERED. CALL LIGHT IS WITHIN REACH. IV LINE IS INTACT AND PATENT. ALL NEEDS WERE MET. WILL ENDORSE CARE TO DELIVERY DRIVER/CUSTOMER SERVICE NURSE FOR DEJON.
--- NOTE | 2018-07-29 19:05 | NUR ---
RN MS OPENING NOTES RECEIVED PATIENT IN BED AWAKE ALERT AND ORIENTED X 4, ABLE TO MAKE NEEDS KNOWN, RESPIRATIONS EVEN AND UNLABORED WITH EQUAL RISE AND FALL OF CHEST. DENIES ANY PAIN OR DISCOMFORT AT THIS TIME, ORIENTED TO STAFF AND CALL LIGHT AND KEPT WITHIN REACH, URINAL KEPT AT BEDSIDE, IV SITE TO LEFT FA #22 G INTACT AND PATENT, NO REDNESS, NO INFILTRATION PRESENT, IVF RUNNING ORDERED, PATIENT REQUESTING FOR SOMETHING TO EAT AWARE OF FULL LIQUID DIET ORDERED, FULL LIQUIDS PROVIDED. SAFETY PRECAUTIONS IN PLACE, LOW BED AND LOCKED, ALL NEEDS ATTENDED AT THIS TIME, WILL CONTINUE TO MONITOR AND ATTEND TO NEEDS.
[2018-07-29] MEDS: MORPHINE SULFATE INJ 2 MG/ML DISP.SYRIN IV PRN ×2 (19:46→23:19)
--- NOTE | 2018-07-29 19:50 | NUR ---
RN MS NOTES PATIENT COMPLAINT OF PAIN TO RECTAL AREA,12/01 REQUESTING FOR PAIN MEDICATION MORPHINE,VITAL SIGNS TAKEN WNL 134/79,72,18, PEN MORPHINE GIVEN ORDERED. WILL CONTINUE TO MONITOR FOR EFFECTIVENESS.
[2018-07-29 20:00] VITALS: BP_SYST 134; BP_DIAS 70; BP_DIAS 79
--- NOTE | 2018-07-29 23:19 | NUR ---
RN MS NOTES PATIENT COMPLAINT OF PAIN TO RECTAL AREA,6-12/01 REQUESTING FOR PAIN MEDICATION MORPHINE,VITAL SIGNS TAKEN WNL 124/78,75,18, PEN MORPHINE GIVEN ORDERED. WILL CONTINUE TO MONITOR FOR EFFECTIVENESS.
[2018-07-30] MEDS: IV NS 0.9% 1,000 ML IV PRN ×2 (02:46→20:33)
[2018-07-30] MEDS: HYDROCODONE/APAP 5/325MG 1 EACH TABLET PO PRN ×2 (06:10→16:49)
--- NOTE | 2018-07-30 06:13 | NUR ---
RN MS NOTES PATIENT COMPLAIN OF PAIN TO RECTUM AREA REQUESTING TO TRY NORCO AT THIS TIME PAIN 7/10 VS WNL NORCO 5/325 MG PRN GIVEN ORDERED, WILL CONTINUE TO MONITOR FOR EFFECTIVENESS
--- NOTE | 2018-07-30 06:19 | NUR ---
RN MS CLOSING NOTES PATIENT IN BED AWAKE ALERT AND ORIENTED X 4, ABLE TO MAKE NEEDS KNOWN, RESPIRATIONS EVEN AND UNLABORED WITH EQUAL RISE AND FALL OF CHEST. C/O PAIN/DISCOMFORT TO RECTAL AREA 12/01 NORCO PRN GIVEN WILL CONTINUE TO MONITOR FOR EFFECTIVENESS, LINEN CHANGED PROVIDED CALL LIGHT KEPT WITHIN REACH, URINAL KEPT AT BEDSIDE 900ML OUTPUT YELLOW URINE, IV SITE TO LEFT FA #22 G INTACT AND PATENT, NO REDNESS, NO INFILTRATION PRESENT, IVF RUNNING ORDERED, PATIENT ON FULL LIQUID DIET ORDERED, FULL LIQUIDS PROVIDED AND TOLERATED WELL. SAFETY PRECAUTIONS IN PLACE, LOW BED AND LOCKED, ALL NEEDS ATTENDED AT THIS TIME, WILL CONTINUE TO MONITOR AND ATTEND TO NEEDS AND ENDORSE TO NEXT SHIFT.
[2018-07-30 06:34] LABS: BASOPHILS % (AUTO) 0.4 % (0.0-2.0); EOSINOPHILS % (AUTO) 6.5 % (0.0-6.0); HEMATOCRIT 32 % (39-51); HEMOGLOBIN 10.9 g/dL (13.5-17.5); LYMPHOCYTES # (AUTO) 1.8 /CMM (0.8-4.8); LYMPHOCYTES % (AUTO) 38.5 % (20.0-44.0); MEAN CORPUSCULAR HGB CONC 34 g/dl (31.0-36.0); MEAN CORPUSCULAR VOLUME 87 fL (80-96); MONOCYTES # (AUTO) 0.5 /CMM (0.1-1.30); MONOCYTES % (AUTO) 10.6 % (2.0-12.0); NEUTROPHILS # (AUTO) 2.1 /CMM (1.8-8.9); PLATELET COUNT (AUTO) 229 /CMM (150-450); RED BLOOD CELL COUNT(AUTO) 3.71 MIL/uL (4.5-6.0); WHITE BLOOD COUNT (AUTO) 4.7 K/uL (4.3-11.0)
[2018-07-30 06:53] LABS: CALCIUM, SERUM 8.5 mg/dL (8.5-10.1); MAGNESIUM 1.6 mg/dL (1.8-2.4); PHOSPHORUS 4.2 mg/dL (2.5-4.9); POTASSIUM 3.7 mmol/L (3.5-5.1)
[2018-07-30 07:00] LABS: FERRITIN 149 ng/mL (8-388)
[2018-07-30 07:26] LABS: IRON, SERUM 29 ug/dl (50-175); TOTAL IRON BINDING CAPACITY 140 ug/dl (250-450)
--- NOTE | 2018-07-30 07:50 | NUR ---
MS RN OPENING NOTES RECEIVED PATIENT IN STABLE CONDITION. IN NO APPARENT DISTRESS. BEDSIDE RAILS ARE UPX2. BED IS LOCKED AND LOWERED. CALL LIGHT IS WITHIN REACH. IV LINE IS INTACT AND PATENT. WILL CONTINUE TO MONITOR PATIENT.
[2018-07-30 08:00] VITALS: BP 98/57
[2018-07-30] MEDS ORDERED: Magnesium 1GM/D5W 100ML PREMIX 100 ML IV SCH (08:30)
[2018-07-30] MEDS: PANTOPRAZOLE 40 MG VIAL IV SCH (09:00)
[2018-07-30] MEDS: SPIRONOLACTONE 25 MG TABLET PO SCH (09:00)
[2018-07-30] MEDS: BISACODYL (5 MG) 5 MG TABLET.DR PO SCH ×2 (09:12→16:49)
[2018-07-30] MEDS: LAMIVUDI PO SCH (09:14)
[2018-07-30] MEDS: DOLUTEGRAVIR PO SCH (09:14)
[2018-07-30] MEDS: ABACAVIR PO SCH (09:14)
[2018-07-30] MEDS: ENSURE CLEAR 237 ML LIQUID (MIX BERRY) PO SCH ×3 (09:16→16:50)
[2018-07-30 16:00] VITALS: BP 124/80
--- NOTE | 2018-07-30 18:46 | NUR ---
MS RN CLOSING NOTES PATIENT IS IN STABLE CONDITION. IN NO APPARENT DISTRESS. BEDSIDE RAILS ARE UPX2. BED IS LOCKED AND LOWERED. CALL LIGHT IS WITHIN REACH. IV LINE IS INTACT AND PATENT. ALL NEEDS WERE MET. WILL ENDORSE CARE TO BARREL ASSEMBLY INSPECTOR NURSE FOR DEJON.
--- NOTE | 2018-07-30 19:00 | NUR ---
RN MS OPENING NOTES RECEIVED PATIENT IN BED AWAKE ALERT AND ORIENTED X 4, ABLE TO MAKE NEEDS KNOWN, RESPIRATIONS EVEN AND UNLABORED WITH EQUAL RISE AND FALL OF CHEST. DENIES ANY PAIN OR DISCOMFORT AT THIS TIME, ORIENTED TO STAFF AND CALL LIGHT AND KEPT WITHIN REACH, URINAL KEPT AT BEDSIDE,COMMODE AT BEDSIDE, IV SITE TO LEFT FA #22 G INTACT AND PATENT, NO REDNESS, NO INFILTRATION PRESENT, IVF RUNNING ORDERED, PATIENT AWARE OF NPO STATUS FOR CT ABDOMEN /PELVIS WITH CONTRAST, SAFETY PRECAUTIONS IN PLACE, LOW BED AND LOCKED, ALL NEEDS ATTENDED AT THIS TIME, WILL CONTINUE TO MONITOR AND ATTEND TO NEEDS. REMAINS COMFORTABLE AT THIS TIME.
[2018-07-30] MEDS ORDERED: DIATR MEGLU/DIATRIZOATE SODIUM 30 ML BOTTLE (GASTROGRAPHIN) ONE (19:46)
[2018-07-30 20:00] VITALS: BP 131/82
--- NOTE | 2018-07-30 20:00 | NUR ---
RN MS NOTES PATIENT SCHEDULED FOR CT ABD/PELVIS WITH PO CONTRAST, CONSENT SIGNED, PATIENT UNDERSTANDS , WILL START DRINKING CONTRAST AT THIS TIME. PER CT CALL AT 11 PM
[2018-07-30 20:08] LABS: *HSV 2 DNA PCR Negative (Negative)
--- NOTE | 2018-07-30 23:29 | NUR ---
rn ms notes patient left for ct in stable condition
[2018-07-30] MEDS ORDERED: IOHEXOL-300 100 ML VIAL IV ONE (23:38)
--- NOTE | 2018-07-30 23:50 | NUR ---
RN MS NOTES PATIENT BACK FROM CT IN STABLE CONDITION SAFELY TRANSFERRED TO BED
[2018-07-30] MEDS: MORPHINE SULFATE INJ 2 MG/ML DISP.SYRIN IV PRN (23:59)
--- NOTE | 2018-07-30 23:59 | NUR ---
RN MS NOTES PATIENT COMPLAINT OF PAIN TO RECTUM ARE 8/10 REQUESTING FOR PAIN MEDICATION MORPHINE, VS WNL 154/91,18,82 MORPHINE PRN ORDERED GIVEN. WILL CONTINUE TO MONITOR FOR EFFECTIVENESS
[2018-07-31 06:34] LABS: BASOPHILS % (AUTO) 0.4 % (0.0-2.0); EOSINOPHILS % (AUTO) 4.7 % (0.0-6.0); HEMATOCRIT 35 % (39-51); HEMOGLOBIN 11.8 g/dL (13.5-17.5); LYMPHOCYTES # (AUTO) 1.7 /CMM (0.8-4.8); LYMPHOCYTES % (AUTO) 32.9 % (20.0-44.0); MEAN CORPUSCULAR HGB CONC 34 g/dl (31.0-36.0); MEAN CORPUSCULAR VOLUME 87 fL (80-96); MONOCYTES # (AUTO) 0.5 /CMM (0.1-1.30); MONOCYTES % (AUTO) 10.8 % (2.0-12.0); NEUTROPHILS # (AUTO) 2.6 /CMM (1.8-8.9); NEUTROPHILS % (AUTO) 51.2 % (43.0-81.0); PLATELET COUNT (AUTO) 282 /CMM (150-450); RED BLOOD CELL COUNT(AUTO) 4.01 MIL/uL (4.5-6.0)
[2018-07-31 06:43] LABS: CALCIUM, SERUM 8.8 mg/dL (8.5-10.1); CREATININE 1.1 mg/dL (0.6-1.3); MAGNESIUM 1.7 mg/dL (1.8-2.4); POTASSIUM 3.5 mmol/L (3.5-5.1)
--- NOTE | 2018-07-31 06:44 | NUR ---
RN MS CLOSING NOTES PATIENT IN BED AWAKE ALERT AND ORIENTED X 4, ABLE TO MAKE NEEDS KNOWN, RESPIRATIONS EVEN AND UNLABORED WITH EQUAL RISE AND FALL OF CHEST. DENIES ANY PAIN OR DISCOMFORT AT THIS TIME, CALL LIGHT KEPT WITHIN REACH, URINAL KEPT AT BEDSIDE,COMMODE AT BEDSIDE, IV SITE TO LEFT FA #22 G INTACT AND PATENT, NO REDNESS, NO INFILTRATION PRESENT, IVF RUNNING ORDERED, SAFETY PRECAUTIONS IN PLACE, LOW BED AND LOCKED, ALL NEEDS ATTENDED AT THIS TIME, WILL CONTINUE TO MONITOR AND ATTEND TO NEEDS. REMAINS COMFORTABLE AT THIS TIME WILL ENDORSE TO NEXT SHIFT. CT ABD/PELVIS RESULTS RELAYED TO GLENN HINDS, WILL ENDORSE TO NEXT SHIFT FOR F/UP. NO CHANGES THROUGHOUT SHIFT.
--- NOTE | 2018-07-31 07:42 | NUR ---
MS/RN OPENING NOTES: RECEIVED PATIENT ON BED A/O X4 AND ABLE TO MAKE NEEDS KNOWN. RESPIRATION EVEN AND NONLABORED WITH NO ACUTE RESPIRATORY DISTRESS. COMPLAIN OF PAIN 8 WITH MORPHINE GIVEN [id number], WILL ADMINISTER MEDICATION ORDERED. ABDOMEN SOFT AND NON DISTENDED WITH ACTIVE BOWEL SOUNDS. IV RUNNING ON LEFT FOREARM WITH NO S/SX OF INFILTRATION. CURRENTLY ON NPO DUE TO PROCEDURE LAST NIGHT. ALL CONCERNS ATTENDED. KEPT CALL LIGHT WITHIN REACH TO ENSURE SAFETY. WILL CONTINUE TO EVALUATE CARE.
[2018-07-31 08:00] VITALS: BP 120/76
[2018-07-31] MEDS: MORPHINE SULFATE INJ 2 MG/ML DISP.SYRIN IV PRN (08:27)
[2018-07-31] MEDS: PANTOPRAZOLE 40 MG VIAL IV SCH (08:27)
[2018-07-31] MEDS: BISACODYL (5 MG) 5 MG TABLET.DR PO SCH (09:18)
[2018-07-31] MEDS: DOLUTEGRAVIR PO SCH (09:18)
[2018-07-31] MEDS: LAMIVUDI PO SCH (09:18)
[2018-07-31] MEDS: ABACAVIR PO SCH (09:18)
[2018-07-31] MEDS: ENSURE CLEAR 237 ML LIQUID (MIX BERRY) PO SCH ×2 (09:19→12:48)
[2018-07-31] MEDS: SPIRONOLACTONE 25 MG TABLET PO SCH (09:19)
[2018-07-31] MEDS: Magnesium 1GM/D5W 100ML PREMIX 100 ML IV SCH ×2 (09:42→11:02)
[2018-07-31] MEDS ORDERED: HYDR-3972 PO (11:59)
[2018-07-31] MEDS ORDERED: FERROUS SULFATE (325 MG) 325 MG/TAB TABLET PO SCH (12:30)
--- NOTE | 2018-07-31 14:00 | NUR ---
MS/LONG CHAIN BEAMER PATIENT DISCHARGE HOME IN STABLE CONDITION. A/O X 4. NO SIGNS OF ACUTE DISTRESS. NO COMPLAIN OF PAIN OR DISCOMFORT. DISCHARGE EDUCATION PROVIDED, MADE AWARE TO FOLLOW UP WITH PRIMARY PHYSICIAN, COLORECTAL SURGEON AND ONCOLOGIST WITHIN A WEEK. VERBALIZED UNDERSTANDING, PRESCRIPTION PROVIDED. NAME BAND AND IV LINE REMOVED. ALL NEEDS ATTENDED TO. LEFT IN STABLE CONDITION ACCOMPANIED BY FRIEND VIA CAR.
== END 2018-07-31 14:30 | disposition home or self-care (01) | DRG 375 ==
LOC: ER 14:40 → MED 17:54
PROVIDERS: ADMIT Hospitalist; ATTEND Student in an Organized Health Care Education/Training Program
PROC: 0DBP8ZX Excision of Rectum, Via Natural or Artificial Opening Endoscopic, Diagnostic (ICD-10-PCS; principal; 2018-07-25)
PROC: 0DBQXZX Excision of Anus, External Approach, Diagnostic (ICD-10-PCS; 2018-07-25)
PROC: 0D7P8ZZ Dilation of Rectum, Via Natural or Artificial Opening Endoscopic (ICD-10-PCS; 2018-07-25)
PROC: 0DJD8ZZ Inspection of Lower Intestinal Tract, Via Natural or Artificial Opening Endoscopic (ICD-10-PCS; 2018-07-29)
PROC: 0DB98ZX Excision of Duodenum, Via Natural or Artificial Opening Endoscopic, Diagnostic (ICD-10-PCS; 2018-07-29)
PROC: 0DB68ZX Excision of Stomach, Via Natural or Artificial Opening Endoscopic, Diagnostic (ICD-10-PCS; 2018-07-29)
DX: C21.8 Malignant neoplasm of overlapping sites of rectum, anus and anal canal (principal); E87.1 Hypo-osmolality and hyponatremia; C77.5 Secondary and unspecified malignant neoplasm of intrapelvic lymph nodes; K61.2 Anorectal abscess; K57.32 Diverticulitis of large intestine without perforation or abscess without bleeding; K52.9 Noninfective gastroenteritis and colitis, unspecified; E87.6 Hypokalemia; Z88.2 Allergy status to sulfonamides; I10 Essential (primary) hypertension; K56.41 Fecal impaction; K29.70 Gastritis, unspecified, without bleeding; K29.80 Duodenitis without bleeding; K44.9 Diaphragmatic hernia without obstruction or gangrene; K57.30 Diverticulosis of large intestine without perforation or abscess without bleeding
CPT/HCPCS: 36415; 71045-TC; 71270-TC; 74178; 80048-TC; 80053-TC; 80061-TC; 80076-TC; 81000-TC; 82105; 82378; 82728-TC; 83540-TC; 83690-TC; 83735-TC; 84100-TC; 84443-TC; 85025-TC; 85730-TC; 86301; 86360; 86704; 86803; 86850-TC; 87081-TC; 87086-TC; 88305-TC; 88313-TC; 88342; A4216; A6402; A6403; C9113; G0378; J0690; J1100; J1170; J2250; J2270; J2405; J2704; J3010; J3475; J3480; J3490; J7030; J7050; J7060; Q9963; Q9967

== ENCOUNTER 2018-10-17 17:57 | Emergency (ER) | payer OTHER ==
[~2018-10-17] VITALS: Ht 165.1 cm; Wt 61.2 kg
[~2018-10-17 17:57] MED LIST: ABAC1TAB15 PO; CALC-1237 PO; CHOL100045 PO; HYDR-3972 PO; MULT-1094 PO; OMEG1CAP PO; SPIR100T5 PO
[2018-10-17 18:17] VITALS: BP 130/81
== END 2018-10-17 19:01 | disposition home or self-care (01) ==
LOC: ER 18:04
DX: H61.22 Impacted cerumen, left ear (principal); I10 Essential (primary) hypertension; Z88.2 Allergy status to sulfonamides; Z79.899 Other long term (current) drug therapy
CPT/HCPCS: Z7502

== ENCOUNTER → 2021-02-27 | Emergency (ER) | payer OTHER ==
[~2021-02-27] VITALS: Ht 162.6 cm; Wt 54.4 kg
[~2021-02-27] MED LIST changes: +CALC-11 PO; -CALC-1237 PO; +IBUP-1955 PO; +TDAP [DIPH/PERTUSSIS/TET] 0.5 ML VIAL IM ONE
--- NOTE | 2021-02-27 18:56 | NUR ---
patient 65/y old BIB via ambulance from home , laceration of forehead s/p hit head on the glass window, also has laceration of on right cheek. complaining of pain back of neck, and head 7/10 per pain scale. seen ER MD, patient take CT of head at this time. fill follow up.
--- NOTE | 2021-02-27 19:34 | NUR ---
mike zhang at bed side for [facility]
[2021-02-27] MEDS: TDAP [DIPH/PERTUSSIS/TET] 0.5 ML VIAL IM ONE (20:36)
[2021-02-27 21:12] VITALS: BP 144/98
--- NOTE | 2021-02-27 21:12 | NUR ---
Patient discharged to home in stable condition. RX, Written and verbal after care instructions given. Patient verbalizes understanding of instruction.
== END | disposition home or self-care (01) ==
LOC: ER 18:39
DX: S01.81XA Laceration without foreign body of other part of head, initial encounter (principal); S81.812A Laceration without foreign body, left lower leg, initial encounter; M54.2 Cervicalgia; R51.9 Headache, unspecified; I10 Essential (primary) hypertension; Z88.2 Allergy status to sulfonamides; Z79.899 Other long term (current) drug therapy; W22.8XXA Striking against or struck by other objects, initial encounter; Y93.89 Activity, other specified; Y92.89 Other specified places as the place of occurrence of the external cause; Y99.8 Other external cause status
CPT/HCPCS: 12002; 12015; 70450; 72125; 73590; 90471; 90715; 99285; A6403